=== PATIENT | female | born 1980 | race American Indian/Alaskan Native ===

== ENCOUNTER 2019-02-21 18:09 | Emergency (ER) | payer OTHER ==
[2019-02-21 19:03] LABS: HCG Qualitative,Urine Negative (Negative)
[2019-02-21 19:08] LABS: Bilirubin,Urine NEG (Negative); Blood,Urine SM (Negative); Color,Urine Yellow (Yellow)
[2019-02-21 19:09] LABS: Bacteria,Urine 1+ /HPF (Negative); Protein,Urine <15 mg/dL mg/dL (Negative); Urobilinogen,Urine < 2.0 mg/dL (<2.0)
[2019-02-21 19:12] LABS: WBC,Urine > 182.0 /HPF (0.0-6.0)
[2019-02-21] MEDS ORDERED: MACROBID PO ONE (22:02)
[2019-02-21] MEDS ORDERED: IBUPROFEN PO ONE (22:02)
--- NOTE | 2019-02-21 22:03 | Emergency Department Report ---
ED General Adult HPI - General Chief complaint: Urogenital-Female Stated complaint: URINE ODOR Time Seen by Provider: 02/21/19 21:01 Source: patient, RN notes reviewed Mode of arrival: Ambulatory Limitations: No Limitations - History of Present Illness Initial comments: This is a pleasant 38-year-old female. This patient is not known to this provider previously. The patient states she is not . She states no chronic medical conditions. She does not have a primary care doctor. She does not take oral contraceptives. She denies DVT, pulmonary embolism risk factors. The patient presents to the ER today with a compartment complaints of dysuria, and foul-smelling urine. The patient states that her urine smells like "ammonia." She describes nontraumatic lumbar back pain, present for the past few days, and describes a sensation of headache and dizziness. The headache is bitemporal and frontal, present over the past couple days to we eks. The headache is not sudden or thunderclap in nature. The headache is not maximal intensity. It is basically resolved at this point in time. Patient reports that she got her glasses updated a few months ago. She reports that she spends 6 hours a day from the computer for work, and that she spends quite a bit of time on her personal cell phone device. Her dizziness is described as a sensation of lightheadedness, which is painless and intermittent, typically comes when she leans forward. She is not experiencing the dizziness now. The patient denies DVT, pulmonary embolus risk factors. She denies vaginal discharge, vaginal burning, and vaginal discomfort. -: Gradual Location: head Consistency: intermittent Improves with: other Worsens with: other - Related Data Previous Rx's Medication Instructions Recorded Last Taken Type Acetaminophen [Non-Aspirin Extra 500 mg PO Q6HR PRN #30 tablet 02/21/19 Unknown Rx Strength] Ibuprofen [Motrin] 600 mg PO Q8H PRN #30 tablet 02/21/19 Unknown Rx Nitrofurantoin Giles/M-Cryst 100 mg PO Q12HR #13 capsule 02/21/19 Unknown Rx [Macrobid CAP] Phenazopyridine [Pyridium] 100 mg PO TID PRN #6 tab 02/21/19 Unknown Rx Allergies Allergy/AdvReac Type Severity Reaction Status Date / Time No Known Allergies Allergy Unverified 02/21/19 18:16 ED Review of Systems ROS: Stated complaint: URINE ODOR Other details as noted in HPI Constitutional: denies: fever Eyes: denies: eye discharge ENT: denies: dental pain Respiratory: denies: cough Cardiovascular: denies: chest pain, syncope Gastrointestinal: denies: vomiting, diarrhea, constipation, hematochezia Genitourinary: urgency, dysuria, frequency Musculoskeletal: back pain Skin: denies: lesions Neurological: headache, weakness Psychiatric: anxiety Hematological/Lymphatic: denies: easy bleeding ED Past Medical Hx - Past Medical History Previous Medical History?: No - Surgical History Past Surgical History?: Yes Hx Appendectomy: Yes Additional Surgical History: D&C. Abdominoplasty - Social History Smoking Status: Never Smoker Substance Use Type: None - Medications Home Medications: Home Medications Medication Instructions Recorded Confirmed Last Taken Type Acetaminophen [Non-Aspirin Extra 500 mg PO Q6HR PRN #30 tablet 02/21/19 Unknown Rx Strength] Ibuprofen [Motrin] 600 mg PO Q8H PRN #30 tablet 02/21/19 Unknown Rx Nitrofurantoin Giles/M-Cryst 100 mg PO Q12HR #13 capsule 02/21/19 Unknown Rx [Macrobid CAP] Phenazopyridine [Pyridium] 100 mg PO TID PRN #6 tab 02/21/19 Unknown Rx ED Physical Exam - General Limitations: No Limitations General appearance: alert, in no apparent distress - Head Head exam: Present: atraumatic, normocephalic - Eye Eye exam: Present: normal appearance, EOMI. Absent: nystagmus Pupils: Present: other (visual acuity intact to finger counting, color perception, reading at a close distance) - ENT ENT exam: Present: normal exam, normal orophraynx, mucous membranes moist, normal external ear exam - Neck Neck exam: Present: normal inspection, full ROM. Absent: tenderness, meningismus - Respiratory Respiratory exam: Present: normal lung sounds bilaterally. Absent: respiratory distress - Cardiovascular Cardiovascular Exam: Present: regular rate, normal rhythm, normal heart sounds. Absent: bradycardia, tachycardia, irregular rhythm, systolic murmur, diastolic murmur, rubs, gallop - GI/Abdominal GI/Abdominal exam: Present: soft, normal bowel sounds, other (there is minimal suprapubic tenderness. There is no rebound, guarding or peritoneal signs.). Absent: distended, tenderness, guarding, rebound, rigid, pulsatile mass - Extremities Exam Extremities exam: Present: normal inspection, full ROM, other (2+ pulses noted in the bilateral upper, lower extremities. Compartments soft. No long bony tenderness. The pelvis is stable.). Absent: tenderness, pedal edema, joint swelling, calf tenderness - Back Exam Back exam: Present: normal inspection, full ROM. Absent: tenderness, CVA tenderness (R), CVA tenderness (L), paraspinal tenderness, vertebral tenderness - Neurological Exam Neurological exam: Present: alert, oriented X3, normal gait (there is no pass pointing. There is normal [id number]. There is negative pronator drift.), other (Extraocular movements intact. Tongue midline. No facial droop. Facial sensation intact to light touch in the V1, V2, V3 distribution bilaterally. 5 and 5 strength in 4 extremities.. Sensation is intact to light touch in 4 extre mities.). Absent: motor sensory deficit - Psychiatric Psychiatric exam: Present: anxious - Skin Skin exam: Present: warm, dry, intact, normal color. Absent: rash ED Course Vital Signs 02/21/19 02/21/19 18:35 22:24 Temperature 98.5 F 97.8 F Pulse Rate 77 72 Respiratory 17 Rate Blood Pressure 134/76 Blood Pressure 113/66 [Right] O2 Sat by Pulse 100 Oximetry - Reevaluation(s) Reevaluation #1: 02/21/19 22:21 Differential diagnosis, including not limited to: Urinary tract infection, orthostasis, migraine headache, tension headache, cluster headache, headache related to excessive computer use Assessment and plan: 38-year-old female with multiple complaints. Complaint #1, foul smell to urine, probably has a urinary tract infection. She has no CVA tenderness, she is afebrile with reassuring vital signs, likely uncomplicated cystitis. Patient is a suitable candidate for Macrobid. Headache is bitemporal, complaint #2, present for quite some time, GCS of 15, NIH score of 0, patient smiling in her examination room, watching TV, and appears quite comfortable, does not have any historical features to suggest potentially dangerous etiology such as bleed, stroke, meningitis, or carbon monoxide. She can be treated supportively for her headache, and she is counseled to minimize screen time on site with cellular phone and computer devices. Complaint #3, "dizziness", is purely positional. No pulmonary embolus or DVT risk factors, low risk by well's criteria, PERC NEGATIVE Has an unremarkable physical examination and unremarkable neurologic examination. Patient does endorse that she does not consume enough water. Counseled patient to consume water, 4-6 cups of water per day. Patient does not appear to have an emergent medical condition at this time, EKG and Accu-Chek are pending. Reevaluation #2: 02/21/19 22:48 Accu-Chek acceptable. EKG unremarkable. Vital signs within normal limits. Patient suitable for discharge. ED Medical Decision Making - Lab Data Vital Signs 02/21/19 18:35 Temperature 98.5 F Pulse Rate 77 Respiratory 17 Rate Blood Pressure 134/76 O2 Sat by Pulse 100 Oximetry - EKG Data -: EKG Interpreted by Me EKG shows normal: sinus rhythm Rate: normal - EKG Data When compared to previous EKG there are: previous EKG unavailable 02/21/19 22:47 Normal sinus, 69 bpm, normal axis, normal intervals, VT interval within normal limits, the EKG is not consistent with ST elevation myocardial infarction. Critical care attestation.: If time is entered above; I have spent that time in minutes in the direct care of this critically ill patient, excluding procedure time. ED Disposition Clinical Impression: Intermittent headache, Positional lightheadedness UTI (urinary tract infection) Qualifiers: Urinary tract infection type: acute cystitis Hematuria presence: without hematuria Qualified Code(s): N30.00 - Acute cystitis without hematuria Disposition: - TO HOME OR SELFCARE Is pt being admited?: No Does the pt Need Aspirin: No Condition: Stable Additional Instructions: Cultures were sent today, and results of the available in the next 3-5 days. Take the antibiotics as directed. Take the pain medications as directed. Minimize exposure to screen time on computer and cellular phone device as discussed. Consume 5-8 cups of water per day, indefinitely. Please have a primary care doctor contact the medical records department to obtain culture results. Follow-up with her primary care doctor within the next 4-6 weeks. Return to the emergency room right away with new, worsening or different symptoms not present on the initial emergency room evaluation. Prescriptions: Nitrofurantoin Giles/M-Cryst [Macrobid CAP] 100 mg PO Q12HR #13 capsule Ibuprofen [Motrin] 600 mg PO Q8H PRN #30 tablet PRN Reason: Pain Acetaminophen [Non-Aspirin Extra Strength] 500 mg PO Q6HR PRN #30 tablet PRN Reason: Pain , Severe (7-10) Phenazopyridine [Pyridium] 100 mg PO TID PRN #6 tab PRN Reason: Pain, Mild (1-3) [facility] [Primary Care Provider] - 3-5 Days [facility] [Provider Group] - 3-5 Days
[2019-02-21 22:26] VITALS: BP 113/66
== END 2019-02-21 23:00 | disposition home or self-care (01) ==
LOC: ED 18:09
DX: N30.00 Acute cystitis without hematuria (principal); R42 Dizziness and giddiness
CPT/HCPCS: 81001; 81025; 82962; 87076; 87086; 87186; 93005; 93010